=== PATIENT | female | born 1965 | race Caucasian/White ===

== ENCOUNTER 2018-01-14 23:08 | Emergency (ER) | payer OTHER ==
[2018-01-15] MEDS: MORPHINE 10 MG/ML 1ML VIAL (J2270) IM (01:25)
[2018-01-15] MEDS: OXYCODONE/APAP 5MG/325MG(BULK FOR ED) 1 TABLET PO (01:26)
== END 2018-01-15 01:45 | disposition home or self-care (01) ==
LOC: M ED 23:08
DX: M79.7 Fibromyalgia (principal); M79.1 Myalgia; E11.9 Type 2 diabetes mellitus without complications; K21.9 Gastro-esophageal reflux disease without esophagitis; M19.90 Unspecified osteoarthritis, unspecified site; F41.9 Anxiety disorder, unspecified; F32.9 Major depressive disorder, single episode, unspecified
CPT/HCPCS: J2270